=== PATIENT | male | born 1950 | race Two or more races ===

== ENCOUNTER 2024-02-06 14:10 | Emergency (ER) | payer OTHER ==
[~2024-02-06] VITALS: Ht 188 cm; Wt 79.4 kg
[2024-02-06] MEDS ORDERED: DEXAMETHASONE SODIUM PHOSPHATE 4 MG/ML VIAL IM STA (15:32)
[2024-02-06] MEDS ORDERED: FAMOTIDINE/PF 20 MG/2 ML VIAL IV STA (15:32)
[2024-02-06] MEDS ORDERED: ACETAMINOPHEN 500 MG GEL..CAP PO STA (15:32)
[2024-02-06] MEDS ORDERED: CODEINE PHOSPHATE/GUAIFENESIN 5 ML ML PO STA (15:33)
[2024-02-06] MEDS ORDERED: CETIRIZINE HCL 5 MG/5 ML ML PO STA (15:33)
[2024-02-06] MEDS ORDERED: ACETAMINOPHEN 500 MG GEL..CAP PO ONE (16:08)
[2024-02-06] MEDS ORDERED: DEXAMETHASONE SODIUM PHOSPHATE 4 MG/ML VIAL ONE (16:08)
[2024-02-06] MEDS ORDERED: CETIRIZINE HCL 5MG/5ML BLIST.PACK PO ONE (16:09)
[2024-02-06] MEDS ORDERED: FAMOtidine 200mg/20ml VIAL ONE (16:09)
[2024-02-06] MEDS ORDERED: GUAIFENESIN/DEXTROMETHORPHAN 10ML BLIST.PACK PO ONE (16:09)
[2024-02-06 16:43] LABS: HEMATOCRIT 46.7 % (39.0-48.0); MEAN CELL VOLUME 92.7 fL (80.0-100.00); MEAN CORPUSCULAR HEMOGLOBIN 31.8 pg (27.00-32.0); MEAN CORPUSCULAR HGB CONC 34.4 g/dl (32.0-36.0); PLATELET COUNT 234 K/uL (150-450); RED BLOOD COUNT 5.04 M/uL (4.00-6.00); RED CELL DISTRIBUTION WIDTH 14.5 % (11.5-14.5)
[2024-02-06 17:20] LABS: CALCIUM 9.6 mg/dL (8.5-10.1); CREATININE SERUM 0.96 mg/dL (0.70-1.30); GFR 76.99; POTASSIUM 4.54 mEq/L (3.5-5.1)
[2024-02-06 17:25] LABS: ABG PH 7.435 (7.35-7.45); ABG PO2 75.7 mmHg (80-100); ABG pCO2 38.4 mmHg (35-45); BASE EXCESS 1.1 mmol/l; BICARBONATE 25.2 mmol/l (23-25); SaO2 95.5 %; Tco2 26.4 mmol/l
[2024-02-06 17:26] LABS: allen test SATISFACTORY; o2 21 %; puncture site RADIAL RIGHT
== END 2024-02-06 19:54 | disposition home or self-care (01) ==
LOC: ER 14:11
PROVIDERS: General Practice
DX: U07.1 COVID-19 (principal); E11.9 Type 2 diabetes mellitus without complications; Z88.8 Allergy status to other drugs, medicaments and biological substances; G20.A1 Parkinson's disease without dyskinesia, without mention of fluctuations

== ENCOUNTER 2024-09-20 13:11 | Inpatient (IN) | payer OTHER ==
[~2024-09-20] VITALS: Ht 175.3 cm; Wt 77.1 kg
--- NOTE | 2024-09-20 13:24 | NUR ---
SE RECIBE PTE MASCULINO DE 73 YRS ALERTA CONCIENTE Y TRANQUILO EN AMBULANCIA , PTE REFIEFE TRAUMA EN EL HOGAR CON TRAUMA EN BRASO W[facility]ATT [facility], SE LE BRAVO S/V Y SE UBICA EN CAMNILLA.
[2024-09-20] MEDS ORDERED: TRAMADOL HCL 50 MG TABLET PO ONE (13:30)
[2024-09-20 13:45] LABS: HEMATOCRIT 47.2 % (39.0-48.0); HEMOGLOBIN 15.6 g/dL (13-16.00); MEAN CELL VOLUME 93.5 fL (80.0-100.00); MEAN CORPUSCULAR HGB CONC 33.1 g/dl (32.0-36.0); PLATELET COUNT 279 K/uL (150-450); RED BLOOD COUNT 5.04 M/uL (4.00-6.00); RED CELL DISTRIBUTION WIDTH 13.6 % (11.5-14.5)
--- NOTE | 2024-09-20 13:54 | NUR ---
PTE EVALUADO POR LA QUIE ORDENA TRATAMIENETO LA CUAL SE EJECUTA . SE LE DA MEDICAMENTO Y SE OBSERVA PTE CON H/L DE AMBULANCIA .
[2024-09-20 14:11] LABS: INR 1.02; PARTIAL THROMBOPLASTIN TIME 25.6 SECONDS (22.0-34.0); PROTHROMBIN TIME 11.1 SECONDS (9.0-11.5)
[2024-09-20 14:15] LABS: ALBUMIN 3.8 gm/dL (3.4-5.0); BILIRUBIN TOTAL 1.92 mg/dL (0.3-1.2); CREATININE SERUM 0.9 mg/dL (0.70-1.30); GFR 82.95; GLOBULINA 3.5 G/DL (2.4-3.5); POTASSIUM 3.95 mEq/L (3.5-5.1); TOTAL PROTEIN 7.3 gm/dL (6.4-8.2)
[2024-09-20 15:22] LABS: PH,URINE 8.5 (5.0-8.0); URINE APPEARANCE Clear; URINE BILIRRUBIN Negative (NEGATIVE); URINE BLOOD Large; URINE COLOR Yellow; URINE GLUCOSE Negative (NEGATIVE); URINE KETONE 15 (NEGATIVE); URINE LEUKOCYTE Trace; URINE NITRATE Negative
[2024-09-20 15:27] LABS: URINE BACTERIA 132.1 uL (0.0-1933); URINE EPITHELIAL CELLS 10.5 uL (0.0-38.8); URINE RBC 1481.4 uL (0.0-20.8); URINE WBC 36.2 uL (0.0-23.2)
[2024-09-20 16:01] LABS: URINE CAST 1.03 uL (0.0-1.40); URINE PROTEIN 100 (NEGATIVE)
[2024-09-20] MEDS ORDERED: 0.9 % SODIUM CHLORIDE 1,000 ML IV SCH (21:45)
[2024-09-20] MEDS ORDERED: CARBIDOPA/LEVODOPA 50/200 CR TABLET.SA PO SCH (21:47)
[2024-09-20] MEDS ORDERED: ACETAMINOPHEN 500 MG GEL..CAP PO PRN (22:00)
[2024-09-20] MEDS ORDERED: OxyCODONE HCL/APAP UD (PERCOCET) PO PRN (22:00)
[2024-09-21 07:06] LABS: COL EPI 64 SECONDS (82-175)
[2024-09-21 08:00] VITALS: BP 147/88; O2SAT 90
[2024-09-21] MEDS ORDERED: CEFTRIAXONE SODIUM 2,000 MG VIAL IV SCH (08:30)
[2024-09-21] MEDS ORDERED: PATIENTS OWN MEDICATION (MEDICAMENTO EN PISO) PO SCH (09:00)
[2024-09-21] MEDS ORDERED: FAMOTIDINE/PF 20 MG in 0.9 % SODIUM CHLORIDE 8 ML IV PUSH SCH (09:00)
[2024-09-21 16:00] VITALS: BP 153/94; O2SAT 95
[2024-09-21] MEDS ORDERED: ONDANSETRON 4 MG TAB.RAPDIS PO PRN (19:45)
[2024-09-21] MEDS ORDERED: MEPERIDINE HCL/PF 50 MG/ML VIAL IM PRN (19:45)
[2024-09-21] MEDS ORDERED: TRAMADOL HCL 50 MG TABLET PO PRN (19:45)
[2024-09-21] MEDS ORDERED: SODIUM CHLORIDE 0.45 % 1,000 ML IV SCH (19:45)
[2024-09-21] MEDS ORDERED: PROMETHAZINE HCL 50 MG/ML AMPUL IM PRN (19:45)
[2024-09-21] MEDS ORDERED: ONDANSETRON HCL 2 MG/ML VIAL IV PRN (19:45)
[2024-09-21] MEDS ORDERED: CHLORHEXIDINE GLUCONATE 120 ML BOTTLE TOP ONE (20:30)
[2024-09-21] MEDS ORDERED: TRANEXAMIC ACID 100MG/1ML (1000MG) AMPUL IV ONE ×2 (20:30)
[2024-09-21] MEDS ORDERED: CEFAZOLIN SODIUM 1,000 MG VIAL IV ONE (20:30)
[2024-09-21] MEDS ORDERED: ACETAMINOPHEN 325 MG TABLET PO SCH (21:00)
[2024-09-21 21:30] VITALS: BP 143/78; O2SAT 99
[2024-09-22] VITALS: BP 114/70; O2SAT 95
[2024-09-22] MEDS ORDERED: CELECOXIB 200 MG CAPSULE PO SCH (01:00)
[2024-09-22 07:25] LABS: HEMATOCRIT 42.4 % (39.0-48.0); HEMOGLOBIN 14.5 g/dL (13-16.00); MEAN CELL VOLUME 92.7 fL (80.0-100.00); MEAN CORPUSCULAR HEMOGLOBIN 31.7 pg (27.00-32.0); MEAN CORPUSCULAR HGB CONC 34.3 g/dl (32.0-36.0); PLATELET COUNT 232 K/uL (150-450); RED BLOOD COUNT 4.58 M/uL (4.00-6.00); RED CELL DISTRIBUTION WIDTH 13.8 % (11.5-14.5)
[2024-09-22 08:00] VITALS: BP 120/75; O2SAT 95
[2024-09-22] MEDS ORDERED: PANTOPRAZOLE SODIUM 40 MG TABLET.DR PO SCH (09:00)
[2024-09-22 12:00] VITALS: BP 95/63; O2SAT 97
[2024-09-22 16:00] VITALS: BP 100/62; O2SAT 96
[2024-09-22] MEDS ORDERED: RIVAROXABAN 10 MG TAB PO SCH (17:15)
[2024-09-22] MEDS ORDERED: HALOPERIDOL LACTATE 5 MG/ML AMPUL IV STA (23:03)
[2024-09-22] MEDS ORDERED: HALOPERIDOL LACTATE 5 MG/ML AMPUL IV PRN (23:15)
[2024-09-23 00:10] VITALS: BP 100/52; O2SAT 97
[2024-09-23 07:42] LABS: HEMATOCRIT 36.3 % (39.0-48.0); HEMOGLOBIN 12.8 g/dL (13-16.00); MEAN CELL VOLUME 91.7 fL (80.0-100.00); MEAN CORPUSCULAR HEMOGLOBIN 32.3 pg (27.00-32.0); MEAN CORPUSCULAR HGB CONC 35.2 g/dl (32.0-36.0); PLATELET COUNT 206 K/uL (150-450); RED BLOOD COUNT 3.96 M/uL (4.00-6.00); RED CELL DISTRIBUTION WIDTH 13.5 % (11.5-14.5)
[2024-09-23 08:10] VITALS: BP 96/60; O2SAT 95
[2024-09-23] MEDS ORDERED: SENNA/DOCUSATE SODIUM 1 TAB TABLET PO SCH (09:00)
== END 2024-09-23 14:37 | DRG 522 ==
LOC: ER 13:11 → SURH 22:01
PROVIDERS: General Practice; Orthopaedic Surgery; ADMIT Internal Medicine; ATTEND Internal Medicine
PROC: BW2GZZZ Computerized Tomography (CT Scan) of Pelvic Region (ICD-10-PCS; 2024-09-20)
PROC: 0MBM0ZZ Excision of Left Hip Bursa and Ligament, Open Approach (ICD-10-PCS; 2024-09-21)
PROC: 0SRS0JZ Replacement of Left Hip Joint, Femoral Surface with Synthetic Substitute, Open Approach (ICD-10-PCS; principal; 2024-09-21 18:00)
DX: S72.002A Fracture of unspecified part of neck of left femur, initial encounter for closed fracture (principal); M70.62 Trochanteric bursitis, left hip; G20.A1 Parkinson's disease without dyskinesia, without mention of fluctuations; W13.3XXA Fall through floor, initial encounter; Y93.9 Activity, unspecified; Y92.9 Unspecified place or not applicable

== ENCOUNTER 2024-10-13 17:42 | Emergency (ER) | payer OTHER ==
[~2024-10-13] VITALS: Ht 188 cm; Wt 74.8 kg
[2024-10-13] MEDS ORDERED: TAMS0.4C PO (18:07)
[2024-10-13] MEDS ORDERED: VENLAFAXINE HC100 MG PO (18:07)
[2024-10-13] MEDS ORDERED: LEVOFLOXACIN750 MG PO (18:08)
[2024-10-13] MEDS ORDERED: DESVENLAFAXINE100 M3 PO (18:08)
[2024-10-13] MEDS ORDERED: CARBIDOPA-LEVO1 EA13 PO (18:08)
[2024-10-13] MEDS ORDERED: 0.9 % SODIUM CHLORIDE 1,000 ML IV SCH (19:30)
[2024-10-13] MEDS ORDERED: CEFTRIAXONE SODIUM 1,000 MG VIAL IV ONE (20:00)
[2024-10-13 20:03] LABS: HEMATOCRIT 40.6 % (39.0-48.0); HEMOGLOBIN 13.3 g/dL (13-16.00); MEAN CELL VOLUME 94.6 fL (80.0-100.00); MEAN CORPUSCULAR HEMOGLOBIN 31.1 pg (27.00-32.0); MEAN CORPUSCULAR HGB CONC 32.8 g/dl (32.0-36.0); PLATELET COUNT 359 K/uL (150-450); RED BLOOD COUNT 4.28 M/uL (4.00-6.00); RED CELL DISTRIBUTION WIDTH 14.3 % (11.5-14.5)
[2024-10-13] MEDS ORDERED: CEFTRIAXONE SODIUM 1,000 MG VIAL ONE (20:05)
[2024-10-13 20:18] LABS: URINE APPEARANCE Turbid; URINE BILIRRUBIN Small (NEGATIVE); URINE BLOOD Large; URINE COLOR Red; URINE GLUCOSE Negative (NEGATIVE); URINE KETONE Negative (NEGATIVE); URINE LEUKOCYTE Moderate; URINE NITRATE Positive
[2024-10-13 20:27] LABS: URINE BACTERIA 856.7 uL (0.0-1933); URINE CAST 2.33 uL (0.0-1.40); URINE EPITHELIAL CELLS 27.3 uL (0.0-38.8); URINE WBC 263.4 uL (0.0-23.2)
[2024-10-13 20:43] LABS: ALBUMIN 3.2 gm/dL (3.4-5.0); BILIRUBIN TOTAL 0.62 mg/dL (0.3-1.2); CALCIUM 9.2 mg/dL (8.5-10.1); GFR 73.45; GLOBULINA 3.9 G/DL (2.4-3.5); POTASSIUM 4.42 mEq/L (3.5-5.1); TOTAL PROTEIN 7.1 gm/dL (6.4-8.2)
[2024-10-13 21:04] LABS: URINE CRYSTALS FEW /HPF; URINE PROTEIN 300 (NEGATIVE); URINE RBC > 10558.9 uL (0.0-20.8)
== END 2024-10-14 06:24 | disposition designated cancer center or children's hospital (05) ==
LOC: ER 17:44
PROVIDERS: Emergency Medicine
DX: Z91.041 Radiographic dye allergy status (principal); R31.9 Hematuria, unspecified
CPT/HCPCS: 36415; 74176; 96365; 96366; 99285; J0696; J7030

== ENCOUNTER 2024-12-02 09:04 | Outpatient (CLI) | payer OTHER ==
[~2024-12-02 09:04] MED LIST: CARBIDOPA-LEVO1 EA13 PO; DESVENLAFAXINE100 M3 PO; LEVOFLOXACIN750 MG PO; TAMS0.4C PO; VENLAFAXINE HC100 MG PO
== END 2024-12-02 09:10 | disposition home or self-care (01) ==
LOC: RAD 09:04
PROVIDERS: ATTEND Orthopaedic Surgery
DX: M25.552 Pain in left hip (principal)